=== PATIENT | male | born 1955 | race Caucasian/White ===

== ENCOUNTER 2016-10-09 16:08 | Emergency (ER) | payer MEDICARE ==
[~2016-10-09] VITALS: Wt 136.1 kg
[~2016-10-09 16:08] MED LIST: KEFLEX500 MG PO; PERCOCET 325 MG1 TA2 PO; PERCOCET 325 MG1 TA7 PO; ROBAXIN750 MG PO; VICODIN 5/500 505 MG PO
[2016-10-09] MEDS ORDERED: LISINOPRIL-HYDR1 TA1 PO (16:43)
[2016-10-09] MEDS ORDERED: MULTI-VITAMINS1 TA1 PO (16:43)
[2016-10-09] MEDS ORDERED: METHOTREXATE2.5 M1 PO (16:43)
[2016-10-09] MEDS ORDERED: NATURE'S BLEND F1 MG PO (16:43)
[2016-10-09] MEDS ORDERED: HYDROCHLOROTHIA25 M1 PO (16:43)
[2016-10-09] MEDS ORDERED: METFORMIN HCL500 MG PO (16:43)
[2016-10-09] MEDS ORDERED: LANTUS100 U/ML SC (16:44)
[2016-10-09] MEDS ORDERED: ZINC SULFATE220 MG PO (16:44)
[2016-10-09] MEDS ORDERED: ENBREL50 MG/ML SC (16:44)
[2016-10-09 16:46] VITALS: BP 182/104
== END 2016-10-09 16:50 | disposition short-term general hospital (02) ==
LOC: ED 16:08
DX: I21.3 ST elevation (STEMI) myocardial infarction of unspecified site (principal); Z79.899 Other long term (current) drug therapy

== ENCOUNTER → 2017-07-22 | Outpatient (CLI) | payer MEDICARE ==
[~2017-07-22] MED LIST changes: +ENBREL50 MG/ML SC; +HYDROCHLOROTHIA25 M1 PO; +LANTUS100 U/ML SC; +LISINOPRIL-HYDR1 TA1 PO; +METFORMIN HCL500 MG PO; +METHOTREXATE2.5 M1 PO; +MULTI-VITAMINS1 TA1 PO; +NATURE'S BLEND F1 MG PO; +ZINC SULFATE220 MG PO
[2017-07-22 07:28] LABS: BASO # 0.1 10*3/uL (0.0-0.1); BASO % 0.5 % (0.0-1.0); EOS # 0.1 10*3/uL (0.0-0.4); EOS % 0.8 % (1.0-4.0); HEMATOCRIT 46.6 % (42.0-52.0); HEMOGLOBIN 15.4 g/dl (14.0-18.0); LYMPH # 3.6 10*3/uL (1.3-4.4); LYMPH % 30.1 % (27.0-41.0); MEAN CELL VOLUME 97.5 fl (80.0-94.0); MEAN CORPUSCULAR HGB 32.2 pg (27.0-31.0); MEAN PLATELET VOLUME 9.9 fl (9.6-12.3); MONO # 1.1 10*3/uL (0.1-1.0); MONO % 9.4 % (3.0-9.0); NEUT # 6.9 10*3/uL (2.3-7.9); NEUT % 58.4 % (47.0-73.0); PLATELET COUNT AUTOMATED 194 10*3/uL (130-400); RED BLOOD COUNT 4.78 10*6/uL (4.50-5.90); RED CELL DISTRI WIDTH 13.1 % (0-14.5); WHITE BLOOD COUNT 11.8 10*3/uL (4.8-10.8)
[2017-07-22 07:54] LABS: BUN 26 mg/dl (7-24); CHLORIDE 102 mmol/L (98-107); CHOLESTEROL 172 mg/dL (<200); CREATININE 0.91 mg/dL (0.70-1.30); HDL CHOLESTEROL 49 mg/dl (40-60); LDL CHOLESTEROL 100 mg/dL (9-159); POTASSIUM 3.7 mmol/L (3.5-5.1); SGOT/AST 120 IU/L (3-35); SGPT/ALT 98 U/L (12-78); SODIUM 141 mmol/L (136-145); TRIGLYCERIDES 113 mg/dl (<150); VLDL CHOLESTEROL 23 mg/dL (6-40)
== END | disposition home or self-care (01) ==
LOC: LAB 07:01
PROVIDERS: Internal Medicine Cardiovascular Disease
DX: I25.9 Chronic ischemic heart disease, unspecified (principal)

== ENCOUNTER 2017-09-22 19:46 | Emergency (ER) | payer MEDICARE ==
[~2017-09-22] VITALS: Ht 180.3 cm; Wt 132.0 kg
[2017-09-22 19:52] VITALS: BP 136/43
== END 2017-09-22 21:04 | disposition home or self-care (01) ==
LOC: ED 19:46
DX: S96.811A Strain of other specified muscles and tendons at ankle and foot level, right foot, initial encounter (principal); Z79.84 Long term (current) use of oral hypoglycemic drugs; Z79.899 Other long term (current) drug therapy; Z79.4 Long term (current) use of insulin; W22.8XXA Striking against or struck by other objects, initial encounter; Y93.89 Activity, other specified; Y92.098 Other place in other non-institutional residence as the place of occurrence of the external cause; Y99.8 Other external cause status

== ENCOUNTER → 2017-10-30 | Outpatient (CLI) | payer MEDICARE | END | disposition home or self-care (01) | LOC: MRI 08:31 | DX: L40.50 Arthropathic psoriasis, unspecified (principal) ==

== ENCOUNTER → 2018-02-26 | Outpatient (CLI) | payer MEDICARE ==
[2018-02-26 12:46] LABS: INTERNATIONAL NORM RATIO 0.9 (2.0-3.5)
[2018-02-26 12:55] LABS: ALBUMIN 3.6 gm/dl (3.1-4.5); BILIRUBIN, DIRECT 0.3 mg/dL (0.0-0.2); TOTAL PROTEIN 7.8 gm/dL (6.4-8.2)
== END | disposition home or self-care (01) ==
LOC: LAB 12:04
PROVIDERS: Internal Medicine Gastroenterology
DX: B18.2 Chronic viral hepatitis C (principal)